=== PATIENT | female | born 1995 ===

== ENCOUNTER 2018-01-17 18:26 | Emergency (ER) | payer OTHER ==
[2018-01-17 19:09] VITALS: BP 147/105
--- NOTE | 2018-01-17 19:18 | UC ---
Lower Extremity/Ankle HPI - HPI Summary HPI Summary: Pt presents with right ankle pain and swelling s/p fall. She tells me that was walking on a hill 2 days ago and tripped sustaining an inversion ankle injury - her butt landed on her ankle. Had immediate pain, but was able to ambulate with a limp. The next day she wasn't able to bear weight and had increased pain and swelling. Today was the same so she had a friend drive her to . Denies numbness, tingling, or previous injury. - History of Current Complaint Chief Complaint: UCLowerExtremity Stated Complaint: ANKLE INJURY Time Seen by Provider: 01/17/18 19:10 Hx Obtained From: Patient Hx Last Menstrual Period: 01/06/18 Onset/Duration: Sudden Onset Severity Initially: Moderate Severity Currently: Mild Pain Intensity: 4 Pain Scale Used: 0-10 Numeric Aggravating Factor(s): Standing, Ambulation Alleviating Factor(s): Rest, Elevation Able to Bear Weight: No - Allergies/Home Medications Allergies/Adverse Reactions: Allergies Allergy/AdvReac Type Severity Reaction Status Date / Time Penicillins Allergy Hives Verified 01/17/18 19:02 Home Medications: Home Medications Control 1 cap PO DAILY 01/17/18 [History] PMH/Surg Hx/FS Hx/Imm Hx Previously Healthy: Yes - Surgical History Surgical History: None - Family History Known Family History: Positive: None - Social History Occupation: Student Lives: Dormitory/Roommates Alcohol Use: Occasionally Substance Use Type: None Smoking Status (MU): Never Smoked Tobacco Review of Systems Constitutional: Negative Skin: Negative Respiratory: Negative Cardiovascular: Negative Gastrointestinal: Negative Musculoskeletal: Decreased ROM - Right ankle, Edema - Right ankle, Other: - Right ankle pain Neurological: Negative Psychological: Negative All Other Systems Reviewed And Are Negative: Yes Physical Exam Triage Information Reviewed: Yes Appearance: Well-Appearing, No Pain Distress, Well-Nourished Vital Signs: Initial Vital Signs Temp 98.3 F 01/17/18 19:03 Pulse 115 01/17/18 19:03 Resp 18 01/17/18 19:03 BP 147/105 01/17/18 19:03 Pulse Ox 100 01/17/18 19:03 Vital Signs Reviewed: Yes Neck: Positive: Supple, Nontender Respiratory: Positive: Lungs clear, Normal breath sounds, No respiratory distress Cardiovascular: Positive: RRR, No Murmur, Pulses Normal - Right DP and TP, Brisk Capillary Refill Musculoskeletal: Positive: Strength Limited @ - Right foot/ankle due to pain, ROM Limited @ - Right ankle due to pain, Edema @ - Right lateral malleolus - moderate, Other: - TTP over right lateral malleolus with mild ecchymosis. Increased laxity with inversion. Neurological: Positive: Alert, Other: - Sensations intact right foot and all toes. Psychological: Positive: Age Appropriate Behavior Skin: Negative: rashes, significant lesion(s) Procedures - Splinting Location: Right ankle Hand-Made Type: orthoglass Splint: posterior walking Pre-Proc Neuro Vasc Exam: normal Post-Proc Neuro Vasc Exam: normal Lower Extremity Course/Dx - Course Course Of Treatment: Repeat BP 118/77. Ankle XR: IMPRESSION: Fracture of the distal fibula with soft tissue swelling. Pt was placed in a posterior splint and given crutches. Toe-touch weight bearing. F/u with ortho this week. - Differential Dx/Diagnosis Provider Diagnoses: Closed non-displaced Fracture of the distal fibula Discharge - Discharge Plan Condition: Stable Disposition: HOME Patient Education Materials: Ankle Fracture (DC), Splint Care (ED) Referrals: No Primary Care Phys,NOPCP [Primary Care Provider] - Orestes Dinh MD [Medical Doctor] - As Soon As Possible Additional Instructions: If you develop a fever, shortness of breath, chest pain, new or worsening symptoms - please call your PCP or go to the ED. Your blood pressure was high at todays visit. Please see your primary provider within 4 weeks for recheck and re-evaluation. 1) Please keep your splint clean, dry, and intact. Use the crutches when walking. 2) May take ibuprofen 600mg every 6-8 hours as needed for pain 3) On Thursday, please call Orthopedics at the number below to schedule a follow up appointment.
--- NOTE | 2018-01-17 20:14 | RAD ---
Indication: Right ankle pain. 3 views of the right ankle demonstrates fracture of the distal fibula. Soft tissue swelling is noted. No significant displacement is noted. IMPRESSION: Fracture of the distal fibula with soft tissue swelling.
== END 2018-01-17 20:10 | disposition home or self-care (01) ==
LOC: UCEAST 18:26
DX: S82.831A Other fracture of upper and lower end of right fibula, initial encounter for closed fracture (principal); W01.0XXA Fall on same level from slipping, tripping and stumbling without subsequent striking against object, initial encounter; Y93.01 Activity, walking, marching and hiking; Y92.828 Other wilderness area as the place of occurrence of the external cause; Z88.0 Allergy status to penicillin
CPT/HCPCS: 99203; G0463